=== PATIENT | male | born 1990 | race Caucasian/White ===

== ENCOUNTER 2018-11-27 07:49 | Emergency (ER) | payer BC ==
[~2018-11-27] VITALS: Ht 167.6 cm; Wt 72.0 kg
[2018-11-27] MEDS ORDERED: HYDR-4353 PO (08:41)
[2018-11-27] MEDS ORDERED: CHLO473M3 PO (08:41)
[2018-11-27] MEDS ORDERED: AMOX-580 PO (08:41)
[2018-11-27 09:03] VITALS: BP 140/89
== END 2018-11-27 09:05 | disposition home or self-care (01) ==
LOC: ER 07:50
DX: K04.7 Periapical abscess without sinus (principal)
CPT/HCPCS: 99283

== ENCOUNTER 2018-12-22 16:00 | Emergency (ER) | payer BC ==
[~2018-12-22] VITALS: Ht 167.6 cm; Wt 65.9 kg
[~2018-12-22 16:00] MED LIST: AMOX-580 PO; CHLO473M3 PO
[2018-12-22 16:13] VITALS: BP 127/96
[2018-12-22] MEDS ORDERED: PENI500T2 PO (16:32)
== END 2018-12-22 16:42 | disposition home or self-care (01) ==
LOC: ER 16:01
DX: K04.7 Periapical abscess without sinus (principal); Z79.1 Long term (current) use of non-steroidal anti-inflammatories (NSAID); Z79.899 Other long term (current) drug therapy
CPT/HCPCS: 99283

== ENCOUNTER 2023-02-17 12:13 | Outpatient (CLI) | payer OTHER ==
[~2023-02-17 12:13] MED LIST changes: -AMOX-580 PO; -CHLO473M3 PO; +ERGO500093 PO
== END 2023-02-17 23:59 | disposition home or self-care (01) ==
LOC: VAS 12:13
PROVIDERS: ATTEND Podiatrist Foot & Ankle Surgery
DX: S93.439A Sprain of tibiofibular ligament of unspecified ankle, initial encounter (principal); M79.605 Pain in left leg; M25.472 Effusion, left ankle; M79.672 Pain in left foot; M25.372 Other instability, left ankle; M76.72 Peroneal tendinitis, left leg; X58.XXXA Exposure to other specified factors, initial encounter; Y93.89 Activity, other specified; Y92.89 Other specified places as the place of occurrence of the external cause; Y99.8 Other external cause status
CPT/HCPCS: 93971